=== PATIENT | female | born 2000 | race Two or more races ===

== ENCOUNTER 2024-11-04 22:36 | Emergency (ER) | payer MEDICAID, SELFPAY ==
[2024-11-04 22:48] VITALS: BP 123/84; PULSE 118; RESP 18; TEMP 38.1; O2SAT 97; BMI 30.5
--- NOTE | 2024-11-04 22:54 | PD.EDURI ---
Upper Respiratory Inf. RME/HPI General Chief Complaint: Flu Like Symptoms Stated Complaint: FLU LIKE SYMPTOMS Time Seen by Provider: 11/04/24 22:46 Arrival date/time: 11/04/24 22:36 23 year old female present to emergency room with c/o flu like sx for 1 day. son has similar symptoms SEVERITY: Symptoms are described as being severe with limitations on activities of daily living CONTEXT: The patient is unable to identify any inciting events. DURATION/TIMING: The symptoms started approximately 1 day ASSOCIATED SYMPTOMS: The patient is unable to identify any other associated symptoms. MODIFYING FACTORS: The patient is unable to identify any alleviating or aggravating symptoms. PERTINENT ROS: no fevers, no cough, no pleuritic pain, no ripping or tearing sensations, denies any lower extremity edema and no unilateral swelling, no chest pain/shortness of breath no nausea,vomiting, diarrhea, no dizziness/headache no rash no loc/syncope episode no abd/back pain no dsyuria,urgency,frequency REVIEW OF SYSTEMS: See History of Present Illness - with the exception of those mentioned in the history of present illness, all other systems reviewed and reported as negative GENERAL: In general the patient is awake, interactive, in an emergency department reast marion. HEAD/EYES/EARS/NOSE/THROAT: normo-cephalic, atraumatic, mucus membranes are moist, anicteric, palpebral conjunctiva is pink, trachea is midline. CARDIOVASCULAR: regular rate and regular rhythm, no murmurs, heart sounds are not distant, strong pulses in all four extremities that are equal and symmetric bilateral upper and lower extremities, normal capillary refill. CHEST/PULMONARY: normal chest rise and fall, good air movement, clear to auscultation bilaterally, normal inspiratory to expiratory ratios without evidence of respiratory distress. NECK: No midline/Paraspinal tenderness, no step off ROM/Strenght intact No Kernig and bruzinski sign. No trauma ABDOMEN: soft, not tender, no masses appreciated BACK: normal range of motion without pain. NEUROLOGICAL: cranio-facial features are symmetric, moves all four extremities equally without obvious limitations or weakness. EXTREMITY: no tenderness to palpation over the long bones or large joints of the bilateral upper and lower extremities, no joint swelling, no joint erythema, no signs of trauma, no unilateral leg swelling and no peripheral edema. SKIN: warm, dry, well-perfused, no jaundice, no rash, no telangiectasias or petechia. PSYCH: calm, cooperative, no evidence of psychosis or agitation Related Data Home Medications ?Medication ?Instructions ?Recorded ?Confirmed folic acid 1 mg tablet 1 mg PO QDAY 07/22/22 07/25/22 prenat.vits,coral,dym-[id number] 1 tab PO QDAY 07/22/22 07/25/22 Previous Rx's ?Medication ?Instructions ?Recorded acetaminophen 300 mg-codeine 30 mg 1 tab PO Q8H PRN pain #14 tabs 07/29/22 tablet ibuprofen 800 mg tablet 800 mg PO Q8H #30 tabs 07/29/22 ibuprofen 800 mg tablet (IBU) 800 mg PO TID PRN pain #30 tabs 11/04/24 oseltamivir 75 mg capsule (Tamiflu) 75 mg PO Q12H 5 days #10 caps 11/04/24 Allergies Allergy/AdvReac Type Severity Reaction Status Date / Time No Known Allergies Allergy Verified 11/04/24 22:38 Course Course Course Narrative: This patient presents with symptoms suspicious for likely viral upper respiratory infection/influenza . Differential includes bacterial pneumonia, sinusitis, allergic rhinitis, Do not suspect underlying cardiopulmonary process. I considered, but think unlikely, dangerous causes of this patient?s symptoms to include ACS, CHF or COPD exacerbations, pneumonia, pneumothorax. Patient is nontoxic appearing and not in need of emergent medical intervention. Plan: reassurance, reassessment, over the counter medications, discharge with PCP followup rx: tamiflu bid for 5 days ibu 800mg as need Quality Measures none Orders Category Date Time Status Bedside COVID-19 Antigen Test NOW Care 11/04/24 22:50 Active Bedside Influenza A&B Antigen Test NOW Care 11/04/24 22:50 Active Ibuprofen Tab [Motrin Tab] Med 11/04/24 23:03 Discontinued 800 mg PO X1 ONE Oseltamivir [Tamiflu] Med 11/04/24 23:03 Discontinued 75 mg PO X1 ONE Vital Signs Vital signs: Vital Signs Temperature 100.6 F H 11/04/24 22:48 Pulse Rate 118 H 11/04/24 22:48 Respiratory Rate 18 11/04/24 22:48 Blood Pressure 123/84 11/04/24 22:48 Pulse Oximetry (%) 97 11/04/24 22:48 Oxygen Delivery Method Room Air 11/04/24 22:48 Upper Respiratory Infection Patient data External records reviewed:: None Clinical information provided by:: none Social determinants that could affect healthcare access:: none Patient has the following chronic illnesses:: none How is presenting disease/condition affected by chronic disease/condition?: no chronic disease Evaluation data The following diagnostics were reviewed and interpreted by me:: lab results Lab and/or radiology exams considered but not ordered:: none Interpretation Summary: + influenza a negative covid/flu? Medications / Prescriptions Medications or Prescriptions considered but not ordered:: none Medication administrations:: Medication Administration History Discontinued Medications Ibuprofen (Ibuprofen Tab 400 Mg Tablet) 800 mg PO X1 ONE Stop: 11/04/24 23:04 Oseltamivir Phosphate (Oseltamivir 75 Mg Capsule) 75 mg PO X1 ONE Stop: 11/04/24 23:04 none Consultations Consultation(s) initiated? (list below): No Diagnosis Upper Respiratory Differential Diagnosis: upper respiratory infection, viral infection, bronchitis and influenza (covid ) Most likely diagnosis given after review of the tests above:: influenza a Admission Indicated Admission indicated?: not indicated Admission Request Was there a request for admission?: No Disposition Plan Disposition Plan: Discharge Discharge Attestation Discharge Attestation: The patient and all family members were given an opportunity to ask questions and understood the discharge instructions. Discharge instructions specifically effects, indications for sooner follow up or return to the emergency department, and the expected course of current diagnosis. Patient condition: Stable Discharge Plan Plan Patient Disposition: HOME (Self Care) Health Concerns: Follow with PMD as directed Take tylenol or motrin as need Return to ED if sx worsen Prescriptions/Referrals Prescriptions/Med Rec: New oseltamivir [Tamiflu] 75 mg capsule 75 mg PO Q12H 5 Days Qty: 10 0RF ibuprofen [IBU] 800 mg tablet 800 mg PO TID PRN (Reason: pain) Qty: 30 0RF No Action folic acid 1 mg Tablet 1 mg PO QDAY Vitamin Tablet 1 tab PO QDAY acetaminophen-codeine 300-30 mg tablet 1 tab PO Q8H PRN (Reason: pain) Qty: 14 0RF ibuprofen 800 mg tablet 800 mg PO Q8H Qty: 30 0RF Problem List Clinical Impression: Influenza Patient/Caregiver Discharge Instructions Education Materials: ED Influenza (Adult) Print Language: Sinhala Stand Alone Forms: Fay Award Info., Patient Portal Info Letter
[2024-11-04 23:13] VITALS: TEMP 38.1
[2024-11-04] MEDS: IBUPROFEN TAB 400 MG TABLET 800 MG PO (23:13)
[2024-11-04] MEDS: OSELTAMIVIR 75 MG CAPSULE PO (23:14)
== END 2024-11-05 00:09 | disposition home or self-care (01) ==
PROVIDERS: Emergency Provider Emergency Medicine; PCP Family Medicine
DX: J10.1 Influenza due to other identified influenza virus with other respiratory manifestations (principal)
CPT/HCPCS: 99283; A9270